=== PATIENT | male | born 1970 | race Caucasian/White ===

== ENCOUNTER → 2019-07-10 | Outpatient (CLI) | payer OTHER | LOC: ULTRA 08:42 | DX: I82.812 Embolism and thrombosis of superficial veins of left lower extremity (principal) ==

== ENCOUNTER → 2019-07-21 | Outpatient (CLI) | payer OTHER | LOC: CAT 12:35 | DX: Z13.6 Encounter for screening for cardiovascular disorders (principal); E78.00 Pure hypercholesterolemia, unspecified; I25.10 Atherosclerotic heart disease of native coronary artery without angina pectoris ==